=== PATIENT | male | born 1975 | race Caucasian/White ===

== ENCOUNTER 2019-02-15 19:16 | Emergency (ER) | payer MEDICAID | END 2019-02-15 20:11 | disposition home or self-care (01) | LOC: ERS 19:16 | DX: S06.0X0A Concussion without loss of consciousness, initial encounter (principal); S00.83XA Contusion of other part of head, initial encounter; S40.019A Contusion of unspecified shoulder, initial encounter; E78.5 Hyperlipidemia, unspecified; F32.9 Major depressive disorder, single episode, unspecified; K21.9 Gastro-esophageal reflux disease without esophagitis; F84.0 Autistic disorder; Z79.899 Other long term (current) drug therapy; W21.03XA Struck by baseball, initial encounter | CPT/HCPCS: 99284 ==

== ENCOUNTER 2019-03-04 09:33 | Emergency (ER) | payer MEDICAID | END 2019-03-04 10:15 | disposition home or self-care (01) | LOC: SCSER 09:33 | DX: S00.03XA Contusion of scalp, initial encounter (principal); E78.5 Hyperlipidemia, unspecified; F32.9 Major depressive disorder, single episode, unspecified; F84.0 Autistic disorder; W05.0XXA Fall from non-moving wheelchair, initial encounter | CPT/HCPCS: 99283 ==

== ENCOUNTER 2019-10-22 09:28 | Emergency (ER) | payer OTHER ==
[2019-10-22 16:55] LABS: SARS-CoV-2 MS2 Positive; SARS-CoV-2 N Gene Positive; SARS-CoV-2 S Gene Positive; SARS-CoV-2 orf1ab Positive
== END 2019-10-22 09:55 | disposition home or self-care (01) ==
LOC: ERS 09:28
DX: U07.1 COVID-19 (principal); K21.9 Gastro-esophageal reflux disease without esophagitis; E78.5 Hyperlipidemia, unspecified; F32.9 Major depressive disorder, single episode, unspecified; F70 Mild intellectual disabilities
CPT/HCPCS: 87635; 99283; U0003